=== PATIENT | female | born 1990 | race Caucasian/White ===

== ENCOUNTER 2018-01-05 07:41 | Emergency (ER) | payer BC ==
[2018-01-05 08:18] LABS: ABSOLUTE BASOPHILS # (AUTO) 0.1 10^3/uL (0.0-0.2); ABSOLUTE EOSINOPHILS # (AUTO) 0.1 10^3/uL (0.0-0.6); ABSOLUTE LYMPHOCYTES (AUTO) 1.3 10^3/uL (0.5-4.7); ABSOLUTE MONOCYTES (AUTO) 0.5 10^3/uL (0.1-1.4); ABSOLUTE NEUT (AUTO) 7.6 10^3/uL (1.7-8.2); BASOPHILS % (AUTO) 0.6 % (0-2); EOSINOPHILS % (AUTO) 1.4 % (0-6); HEMATOCRIT 42.7 % (36.0-47.0); HEMOGLOBIN 14.6 g/dL (12.0-15.5); LYMPHOCYTES % (AUTO) 13.1 % (13-45); MEAN CORPUSCULAR HEMOGLOBIN 32.3 pg (27.0-33.4); MEAN CORPUSCULAR HGB CONC 34.1 g/dL (32.0-36.0); MEAN CORPUSCULAR VOLUME 95 fl (80-97); MONOCYTES % (AUTO) 5.2 % (3-13); PLATELET COUNT 247 10^3/uL (150-450); RED CELL DISTRIBUTION WIDTH 12.6 % (11.5-14.0); SEGMENTED NEUTROPHILS % (AUTO) 79.7 % (42-78); TOTAL CELLS COUNTED % (AUTO) 100 %; WHITE BLOOD COUNT 9.6 10^3/uL (4.0-10.5)
[2018-01-05] MEDS ORDERED: ONDANSETRON HCL INJ/PF 4 MG/2 ML SDV IV ONE (08:24)
[2018-01-05] MEDS ORDERED: NORMAL SALINE 1000 ML 1,000 ML IV ONE (08:24)
[2018-01-05] MEDS ORDERED: KETOROLAC TROMETHAMINE INJ/PF 30 MG/1 ML SDV IV ONE (08:24)
[2018-01-05 08:25] LABS: ALANINE AMINOTRANSFERASE 32 U/L (9-52); ALBUMIN 4.6 g/dL (3.5-5.0); ALKALINE PHOSPHATASE 50 U/L (38-126); ANION GAP 12 (5-19); ASPARTATE AMINO TRANSFERASE 25 U/L (14-36); BILIRUBIN,DIRECT 0.3 mg/dL (0.0-0.4); BILIRUBIN,TOTAL 0.6 mg/dL (0.2-1.3); BLOOD UREA NITROGEN 7 mg/dL (7-20); CALCIUM 9.8 mg/dL (8.4-10.2); CARBON DIOXIDE 24 mmol/L (22-30); CHLORIDE 109 mmol/L (98-107); GLUCOSE 113 mg/dL (75-110); LIPASE 26.1 U/L (23-300); POTASSIUM 4.4 mmol/L (3.6-5.0); SODIUM 144.5 mmol/L (137-145); TOTAL PROTEIN 7.4 g/dL (6.3-8.2)
--- NOTE | 2018-01-05 08:27 | ER Document Report ---
ED GI/ - General Chief Complaint: Possible Kidney Stone Stated Complaint: FLANK PAIN Time Seen by Provider: 01/05/18 07:56 Mode of Arrival: Ambulatory Information source: Patient TRAVEL OUTSIDE OF THE [place] IN LAST 30 DAYS: No - HPI Patient complains to provider of: Abdominal pain Notes: 01/05/18 08:26 Patient is here with complaints of left-sided abdominal pain. She states that on Thursday she had left flank pain and the pain is since moved down to her left abdomen. She had nausea vomiting this morning. She denies any diarrhea. No blood in her stool. She has a history of kidney stones, and states that this feels similar to kidney stone she has had in the past. She denies any fever. She denies any dysuria or hematuria. No vaginal bleeding or vaginal discharge. No prior abdominal surgeries. No chest pain or shortness of breath. No numbness, tingling, weakness. No rash. No injury. She denies any other complaints at this time. Nothing makes her pain better or worse. - Related Data Allergies/Adverse Reactions: No Known Allergies Allergy (Verified 01/05/18 07:43) Past Medical History - Social History Smoking Status: Current Every Day Smoker Chew tobacco use (# tins/day): No Frequency of alcohol use: Rare Drug Abuse: Marijuana Family History: Other - Kidney Stones Patient has suicidal ideation: No Patient has homicidal ideation: No Renal/ Medical History: Reports: Hx Kidney Stones. Denies: Hx Peritoneal Dialysis - Immunizations Hx Diphtheria, Pertussis, Tetanus Vaccination: No - unknown Review of Systems - Review of Systems -: Yes All other systems reviewed and negative Physical Exam - Vital signs Vitals: Temp Pulse Resp BP Pulse Ox 98.1 F 106 H 20 124/71 100 01/05/18 07:52 01/05/18 07:52 01/05/18 07:52 01/05/18 07:52 01/05/18 07:52 - Notes Notes: GENERAL: alert, cooperative, nontoxic, no distress. HEAD: normocephalic, atraumatic EYES: conjunctiva pink without discharge, no external redness or swelling. EARS: no external swelling, no external redness NOSE: atraumatic, no external swelling MOUTH/THROAT: mucous membranes moist and pink, posterior pharynx without erythema, swelling, exudate. No trismus or drooling. NECK: soft, supple, full range of motion, no meningismus. CHEST: no distress, lungs clear and equal throughout. No wheezing, rales, rhonchi. CARDIAC: regular rate and rhythm, no murmur, normal capillary refill, normal pulses. No peripheral edema noted. ABDOMEN: Soft, tenderness to palpation of the left mid abdomen. No rebound tenderness or guarding. No mass. BACK: full range of motion, no CVA tenderness. EXTREMITIES: full range of motion of all extremities. No redness, no swelling. NEURO: alert and oriented x 3, no focal deficits, full range of motion of all extremities. PYSCH: appropriate mood, affect. Patient is cooperative. SKIN: pink, warm, dry, no rash. Course - Re-evaluation Re-evalutation: 01/05/18 11:59 Patient is nontoxic appearing with stable vitals. The patient arrives with complaints of left lower abdominal pain. She is concerned that she may have a kidney stone. On exam she has some mild left lower abdominal tenderness. No mass. No rebound tenderness. She denies any vaginal bleeding or vaginal discharge. Lab work shows that the patient is currently . Her hCG is just above 2000. This is her first . Ultrasound of the pelvis shows an intrauterine measuring 5 weeks 3 days with a left ovarian cyst. Left renal ultrasound shows no acute findings. Urinalysis shows no blood or signs of infection. Remainder of her lab work is unremarkable. This point the patient appears to have an intrauterine in her left lower quadrant pain is likely secondary to the left ovarian cyst. She will be discharged home on vitamins. She is currently established with [facility] and will was instructed to make a follow-up appointment with them at the next available appointment. She was instructed to stop smoking, to stop smoking marijuana, to avoid alcohol. She is instructed to take Tylenol as needed for her pain. Follow-up sooner if she develops any worsening pain, fever , persistent vomiting, severe vaginal bleeding, or for any further concerns. The patient is noted to have elevated blood pressure during today's emergency department visit. The patient was informed of this finding. The patient was instructed that this may be related to pre-hypertension and requires further evaluation with a primary care provider. The patient has no hypertensive symptoms at this time. The patient's emergency department workup and current diagnosis were explained to the patient and or family. Follow-up instructions were provided. Medications if prescribed were discussed. Instructions for when to return to the emergency department including specific worrisome symptoms were discussed with the patient and/or family. - Vital Signs Vital signs: Temp Pulse Resp BP Pulse Ox 98.1 F 106 H 20 124/71 100 01/05/18 07:52 01/05/18 07:52 01/05/18 07:52 01/05/18 07:52 01/05/18 07:52 - Laboratory Result Diagrams: 01/05/18 08:03 01/05/18 08:03 Laboratory results interpreted by me: 01/05/18 01/05/18 01/05/18 08:03 08:03 08:03 Seg Neutrophils % 79.7 H Chloride 109 H Creatinine 0.51 L Glucose 113 H Serum HCG, Qual POSITIVE H Beta HCG, Quant Urine HCG, Qual 01/05/18 01/05/18 08:03 09:10 Seg Neutrophils % Chloride Creatinine Glucose Serum HCG, Qual Beta HCG, Quant 2717.10 H Urine HCG, Qual POSITIVE H - Diagnostic Test Radiology reviewed: Image reviewed, Reports reviewed - Pelvic ultrasound shows intrauterine measuring 5 weeks 3 days, renal ultrasound shows no acute abnormalities, pelvic ultrasound also shows left ovarian cyst. Discharge - Discharge Clinical Impression: Left ovarian cyst Qualifiers: Weeks of gestation: less than 8 weeks Qualified Code(s): Z3A.01 - Less than 8 weeks gestation of Condition: Stable Disposition: HOME, SELF-CARE Instructions: ([facility]), Ovarian Cyst ([facility]) Additional Instructions: Take medications as prescribed. Take Tylenol as needed for pain. Stop smoking cigarettes as well as marijuana. Follow-up with [facility] at the next available appointment. Follow-up sooner for worsening pain, high fever, persistent vomiting, or for any further concerns. Your blood pressure was elevated during today's visit. Have this rechecked with your doctor. Prescriptions: Pnv No.95/Ferrous Fum/Folic AC [ Vitamin Tablet] 1 each PO DAILY #30 tablet Forms: Elevated Blood Pressure, Smoking Cessation Education Referrals: ALISSA ZIEGLER MD [ACTIVE STAFF] - Follow up as needed
[2018-01-05] MEDS ORDERED: ACETAMINOPHEN 325 MG TABLET PO ONE (09:37)
[2018-01-05 09:39] LABS: APPEARANCE,URINE CLEAR; BILIRUBIN,URINE NEGATIVE (NEGATIVE); COLOR,URINE YELLOW; GLUCOSE, URINE NEGATIVE (NEGATIVE); KETONES,URINE NEGATIVE (NEGATIVE); LEUKOCYTE ESTERASE,URINE NEGATIVE (NEGATIVE); NITRITE,URINE NEGATIVE (NEGATIVE); PROTEIN,URINE NEGATIVE (NEGATIVE); URINE SPECIFIC GRAVITY 1.011; UROBILINOGEN,URINE NEGATIVE mg/dL (<2.0)
--- NOTE | 2018-01-05 11:11 | RADIOLOGY REPORT (SQ) ---
EXAM DESCRIPTION: U/S OB TRANSVAG W/DOPPLER COMPLETED DATE/TIME: 01/05/2018 10:55 am REASON FOR STUDY: preg, left abdo pain COMPARISON: None. TECHNIQUE: Endovaginal static and realtime grayscale images acquired of the pelvis. Additional selec boubacar spectral and color Doppler images recorded. All images stored on PACs. [id number] LIMITATIONS: None. FINDINGS: There is an intrauterine gestational sac with double decidual reaction. Tiny yolk sac. B y mean sac diameter, estimated age is 5 weeks 2 days, estimated due date 09/05/2018. Embryo not yet seen. SUBCHORIONIC BLEED: No SIZE OF BLEED: Not applicable. UTERUS: No masses. No anomalies. Uterus is 7.1 x 6.4 x 4.1 cm in size. CERVICAL LENGTH: 2.7 cm Closed. RIGHT ADNEXA: Normal ovary with normal vascular flow. Right ovary is 3.7 x 1.6 x 1.5 cm in size No adnexal free fluid. No adnexal masses. LEFT ADNEXA: Normal ovary with normal vascular flow. Left ovary is 3.9 x 2.3 x 1.9 cm in size with a 1.5 cm corpus luteal cyst. No adnexal free fluid. No adnexal masses. FREE FLUID: Trace cul-de-sac fluid OTHER: No other significant finding. IMPRESSION: Intrauterine gestational sac measuring 5 weeks 2 days Left ovary hemorrhagic corpus luteal cyst 1.5 cm in size Trimester of : First - 0 to 13 weeks. TECHNICAL DOCUMENTATION: JOB ID: [id number] [employer]- All Rights Reserved Reading location - IP/workstation name: [email or web address]
--- NOTE | 2018-01-05 11:11 | RADIOLOGY REPORT (SQ) ---
EXAM DESCRIPTION: U/S RETROPERITON (RENAL/AORTA) COMPLETED DATE/TIME: 01/05/2018 10:55 am REASON FOR STUDY: left flank abdo pain, hx of kidney stones COMPARISON: None. TECHNIQUE: Dynamic and static grayscale images acquired of the kidneys and bladder and recorded on P ACS. Additional selected color Doppler and spectral images recorded. LIMITATIONS: None. FINDINGS: RIGHT KIDNEY: Normal size, 11.2 cm in length. Normal echogenicity. No solid or suspicious masses. No hydronephrosis. No calcifications. LEFT KIDNEY: Normal size, 12.7 cm in length. Normal echogenicity. No solid or suspicious masses. No hydronephrosis. No calcifications. BLADDER: No masses. OTHER FINDINGS: No other significant finding. IMPRESSION: NORMAL RENAL AND BLADDER ULTRASOUND. TECHNICAL DOCUMENTATION: JOB ID: [id number] [employer]- All Rights Reserved Reading location - IP/workstation name: [email or web address]
[2018-01-05 12:28] VITALS: BP 122/65
== END 2018-01-05 12:27 | disposition home or self-care (01) ==
LOC: ER 07:41
DX: O34.81 Maternal care for other abnormalities of pelvic organs, first trimester (principal); N83.202 Unspecified ovarian cyst, left side; R10.32 Left lower quadrant pain; O99.331 Smoking (tobacco) complicating pregnancy, first trimester; Z3A.01 Less than 8 weeks gestation of pregnancy; Z87.442 Personal history of urinary calculi
CPT/HCPCS: 99284; 96361; 96374; 36415; 84702; 83690; 84703; 85025; 81025; 80053; 81001; 76817; 76770; 93976; J2405; J7030

== ENCOUNTER 2018-04-19 08:00 | Outpatient (CLI) | payer BC ==
[2018-04-19 08:35] LABS: AMORPHOUS SEDIMENT,URINE TRACE /HPF; APPEARANCE,URINE CLOUDY; BILIRUBIN,URINE NEGATIVE (NEGATIVE); GLUCOSE, URINE NEGATIVE (NEGATIVE); KETONES,URINE NEGATIVE (NEGATIVE); LEUKOCYTE ESTERASE,URINE NEGATIVE (NEGATIVE); NITRITE,URINE NEGATIVE (NEGATIVE); PROTEIN,URINE NEGATIVE (NEGATIVE); URINE SPECIFIC GRAVITY 1.016
[2018-04-19 08:40] LABS: COLOR,URINE YELLOW
[2018-04-19 08:51] LABS: URINE AMPHETAMINES SCREEN NEGATIVE; URINE BARBITURATES SCREEN NEGATIVE; URINE BENZODIAZEPINES SCREEN NEGATIVE; URINE COCAINE SCREEN NEGATIVE; URINE METHADONE SCREEN NEGATIVE; URINE PHENCYCLIDINE SCREEN NEGATIVE
[2018-04-19 08:58] LABS: URINE MARIJUANA (THC) SCREEN UNCONFIRMED POSITIVE
== END 2018-04-19 08:45 | disposition home or self-care (01) ==
LOC: LC 08:00
PROVIDERS: ATTEND Obstetrics & Gynecology Gynecology
PROC: 4A1HXCZ Monitoring of Products of Conception, Cardiac Rate, External Approach (ICD-10-PCS; principal; 2018-04-19)
DX: O26.892 Other specified pregnancy related conditions, second trimester (principal); R10.32 Left lower quadrant pain; Z3A.20 20 weeks gestation of pregnancy; Z87.442 Personal history of urinary calculi
CPT/HCPCS: 80307; 81001

== ENCOUNTER 2018-04-19 08:53 | Emergency (ER) | payer BC ==
[2018-04-19 09:33] LABS: ABSOLUTE BASOPHILS # (AUTO) 0.1 10^3/uL (0.0-0.2); ABSOLUTE EOSINOPHILS # (AUTO) 0.1 10^3/uL (0.0-0.6); ABSOLUTE LYMPHOCYTES (AUTO) 1.5 10^3/uL (0.5-4.7); ABSOLUTE MONOCYTES (AUTO) 0.6 10^3/uL (0.1-1.4); ABSOLUTE NEUT (AUTO) 7.8 10^3/uL (1.7-8.2); BASOPHILS % (AUTO) 0.5 % (0-2); EOSINOPHILS % (AUTO) 0.8 % (0-6); HEMATOCRIT 34.7 % (36.0-47.0); HEMOGLOBIN 12.1 g/dL (12.0-15.5); LYMPHOCYTES % (AUTO) 14.6 % (13-45); MEAN CORPUSCULAR HEMOGLOBIN 33.1 pg (27.0-33.4); MEAN CORPUSCULAR HGB CONC 34.7 g/dL (32.0-36.0); MEAN CORPUSCULAR VOLUME 95 fl (80-97); MONOCYTES % (AUTO) 5.7 % (3-13); PLATELET COUNT 213 10^3/uL (150-450); RED BLOOD COUNT 3.65 10^6/uL (3.72-5.28); RED CELL DISTRIBUTION WIDTH 12.1 % (11.5-14.0); SEGMENTED NEUTROPHILS % (AUTO) 78.4 % (42-78); TOTAL CELLS COUNTED % (AUTO) 100 %
[2018-04-19 09:55] LABS: ALANINE AMINOTRANSFERASE 20 U/L (9-52); ALBUMIN 3.6 g/dL (3.5-5.0); ALKALINE PHOSPHATASE 35 U/L (38-126); ANION GAP 11 (5-19); ASPARTATE AMINO TRANSFERASE 15 U/L (14-36); BILIRUBIN,DIRECT 0.1 mg/dL (0.0-0.4); BILIRUBIN,TOTAL 0.3 mg/dL (0.2-1.3); BLOOD UREA NITROGEN 6 mg/dL (7-20); CALCIUM 9.4 mg/dL (8.4-10.2); CARBON DIOXIDE 20 mmol/L (22-30); CHLORIDE 108 mmol/L (98-107); GLUCOSE 86 mg/dL (75-110); LIPASE 29.5 U/L (23-300); POTASSIUM 4.1 mmol/L (3.6-5.0); SODIUM 139.4 mmol/L (137-145); TOTAL PROTEIN 6.7 g/dL (6.3-8.2)
[2018-04-19] MEDS ORDERED: MORPHINE SULFATE 10 MG/ML INJ IV ONE (09:56)
[2018-04-19] MEDS ORDERED: PROCHLORPERAZINE EDISYLATE INJ 10 MG/2 ML VIAL IV ONE (09:56)
[2018-04-19] MEDS ORDERED: NORMAL SALINE 1000 ML 1,000 ML IV ONE (09:57)
--- NOTE | 2018-04-19 10:03 | ER Document Report ---
ED Medical Screen (RME) - General Chief Complaint: Flank Pain Stated Complaint: FLANK PAIN Time Seen by Provider: 04/19/18 09:52 Notes: 27 years old female who is 20 week , with history of renal stone multiple of them according to her, presents today with a sharp left flank pain early this morning around 6:00 radiating towards the groin. The pain scale now has subsided to 5/10. Associated with nausea no vomiting. Denies any dysuria or hematuria. Denies any fever chills or other constitutional symptoms. This is her first . TRAVEL OUTSIDE OF THE [place] IN LAST 30 DAYS: No - Related Data Allergies/Adverse Reactions: No Known Allergies Allergy (Verified 01/05/18 07:43) Past Medical History - Social History Chew tobacco use (# tins/day): No Frequency of alcohol use: None Drug Abuse: Marijuana Renal/ Medical History: Reports: Hx Kidney Stones. Denies: Hx Peritoneal Dialysis - Immunizations Hx Diphtheria, Pertussis, Tetanus Vaccination: No - unknown Physical Exam - Vital signs Vitals: Temp Pulse Resp BP Pulse Ox 98.4 F 92 16 121/70 99 04/19/18 09:01 04/19/18 09:01 04/19/18 09:01 04/19/18 09:01 04/19/18 09:01 Course - Vital Signs Vital signs: Temp Pulse Resp BP Pulse Ox 98.4 F 92 16 121/70 99 04/19/18 09:01 04/19/18 09:01 04/19/18 09:01 04/19/18 09:01 04/19/18 09:01 - Laboratory Result Diagrams: 04/19/18 09:14 04/19/18 09:14 Laboratory results interpreted by me: 04/19/18 04/19/18 09:14 09:14 RBC 3.65 L Hct 34.7 L Seg Neutrophils % 78.4 H Chloride 108 H Carbon Dioxide 20 L BUN 6 L Creatinine 0.37 L Alkaline Phosphatase 35 L Doctor's Discharge - Discharge Referrals: MOE BECKHAM MD [Primary Care Provider] - Follow up as needed
[2018-04-19 10:07] LABS: APPEARANCE,URINE CLEAR; BILIRUBIN,URINE NEGATIVE (NEGATIVE); COLOR,URINE YELLOW; GLUCOSE, URINE NEGATIVE (NEGATIVE); KETONES,URINE NEGATIVE (NEGATIVE); LEUKOCYTE ESTERASE,URINE NEGATIVE (NEGATIVE); NITRITE,URINE NEGATIVE (NEGATIVE); PROTEIN,URINE NEGATIVE (NEGATIVE); URINE SPECIFIC GRAVITY 1.008; UROBILINOGEN,URINE NEGATIVE mg/dL (<2.0)
--- NOTE | 2018-04-19 12:01 | RADIOLOGY REPORT (SQ) ---
EXAM DESCRIPTION: U/S RETROPERITON (RENAL/AORTA) COMPLETED DATE/TIME: 04/19/2018 11:46 am REASON FOR STUDY: Left ureteric stone COMPARISON: 01/05/2018 TECHNIQUE: Dynamic and static grayscale images acquired of the kidneys and bladder and recorded on P ACS. Additional selected color Doppler and spectral images recorded. LIMITATIONS: None. FINDINGS: RIGHT KIDNEY: The right kidney measures 13.0 cm, normal size. Normal echogenicity. No belem id or suspicious masses. No hydronephrosis. No calcifications. LEFT KIDNEY: The left kidney measures 11.7 cm, normal size. Normal echogenicity. No solid or suspici ous masses. No hydronephrosis. No calcifications. BLADDER: No masses. Bilateral ureteral jets are not visualized. OTHER FINDINGS: The patient is . IMPRESSION: 1. No significant interval changes since the prior examination dated 01/05/2018. TECHNICAL DOCUMENTATION: JOB ID: [id number] [employer]- All Rights Reserved Reading location - IP/workstation name: [email or web address]
--- NOTE | 2018-04-19 12:34 | ER Document Report ---
ED GI/ - General Chief Complaint: Flank Pain Stated Complaint: FLANK PAIN Time Seen by Provider: 04/19/18 09:52 Notes: Chief complaint: Left flank pain History of complain:( obtained from----patient)27 years old female who is 20 week , with history of renal stone multiple of them according to her, presents today with a sharp left flank pain early this morning around 6:00 radiating towards the groin. The pain scale now has subsided to 5/10. Associated with nausea no vomiting. Denies any dysuria or hematuria. Denies any fever chills or other constitutional symptoms. This is her first . Left flank pain Onset: Sudden Duration: As above Severity: Moderate Quality: Sharp Context: Kidney stones Exacerbating factor and relieving factors: As above REVIEW OF SYSTEMS: CONSTITUTIONAL : Denies fever, chills, or sweats. Denies recent illness. EENT: Denies eye, ear, throat, or mouth pain or symptoms. Denies nasal or sinus congestion or discharge. Denies throat, tongue, or mouth swelling or difficulty swallowing. CARDIOVASCULAR: Denies chest pain. Denies palpitations or racing or irregular heart beat. Denies ankle edema. RESPIRATORY: Denies cough, cold, or chest congestion. Denies shortness of breath, difficulty breathing, or wheezing. GASTROINTESTINAL: Denies distention. Denies nausea, vomiting, or diarrhea. Denies blood in vomitus, stools, or per rectum. Denies black, tarry stools. Denies constipation. GENITOURINARY: Denies difficulty urinating, painful urination, burning, frequency, blood in urine, or discharge. FEMALE GENITOURINARY: Denies vaginal bleeding, heavy or abnormal periods, irregular periods. Denies vaginal discharge or odor. MUSCULOSKELETAL: Denies back or neck pain or stiffness. Denies joint pain or swelling. SKIN: Denies rash, lesions or sores. HEMATOLOGIC : Denies easy bruising or bleeding. LYMPHATIC: Denies swollen, enlarged glands. NEUROLOGICAL: Denies confusion or altered mental status. Denies passing out or loss of consciousness. Denies dizziness or lightheadedness. Denies headache. Denies weakness or paralysis or loss of use of either side. Denies problems with gait or speech. Denies sensory loss, numbness, or tingling. Denies seizures. PSYCHIATRIC: Denies anxiety or stress. Denies depression, suicidal ideation, or homicidal ideation. ALL OTHER SYSTEMS REVIEWED AND NEGATIVE. PHYSICAL EXAMINATION: GENERAL: Well-appearing, well-nourished and in mild acute distress. HEAD: Atraumatic, normocephalic. EYES: Pupils equal round and reactive to light, extraocular movements intact, conjunctiva are normal. ENT: Nares patent, oropharynx clear without exudates. Moist mucous membranes. NECK: Normal range of motion, supple without lymphadenopathy LUNGS: Breath sounds clear to auscultation bilaterally and equal. No wheezes rales or rhonchi. HEART: Regular rate and rhythm without murmurs ABDOMEN: Soft, nontender, nondistended abdomen. No guarding, no rebound. No masses appreciated. Examination of genitals-deferred Musculoskeletal: Normal range of motion, no pitting or edema. No cyanosis. NEUROLOGICAL: Cranial nerves grossly intact. Normal speech, normal gait. Normal sensory, motor exams PSYCH: Normal mood, normal affect. SKIN: Warm, Dry, normal turgor, no rashes or lesions noted. Dictation was performed using [employer] voice recognition software TRAVEL OUTSIDE OF THE [place] IN LAST 30 DAYS: No - HPI Notes: 04/19/18 12:34 Dictated - Related Data Allergies/Adverse Reactions: No Known Allergies Allergy (Verified 01/05/18 07:43) Past Medical History - Social History Smoking Status: Current Some Day Smoker Chew tobacco use (# tins/day): No Frequency of alcohol use: None Drug Abuse: None, Marijuana Lives with: Family Family History: Reviewed & Not Pertinent, Other - Kidney Stones Patient has suicidal ideation: No Patient has homicidal ideation: No Renal/ Medical History: Reports: Hx Kidney Stones. Denies: Hx Peritoneal Dialysis - Immunizations Hx Diphtheria, Pertussis, Tetanus Vaccination: No - unknown Review of Systems - Review of Systems Notes: Dictated Physical Exam - Vital signs Vitals: Temp Pulse Resp BP Pulse Ox 98.4 F 92 16 121/70 99 04/19/18 09:01 04/19/18 09:01 04/19/18 09:01 04/19/18 09:01 04/19/18 09:01 - Notes Notes: Dictated Course - Re-evaluation Re-evalutation: 04/19/18 12:35 Given pain medication and IV fluid. - Vital Signs Vital signs: Temp Pulse Resp BP Pulse Ox 98.4 F 92 16 121/70 99 04/19/18 09:01 04/19/18 09:01 04/19/18 09:01 04/19/18 09:01 04/19/18 09:01 - Laboratory Result Diagrams: 04/19/18 09:14 04/19/18 09:14 Laboratory results interpreted by me: 04/19/18 04/19/18 09:14 09:14 RBC 3.65 L Hct 34.7 L Seg Neutrophils % 78.4 H Chloride 108 H Carbon Dioxide 20 L BUN 6 L Creatinine 0.37 L Alkaline Phosphatase 35 L - Diagnostic Test Radiology reviewed: Reports reviewed - Ultrasound of the left kidney reported as no hydronephrosis or no identifiable stone. Discharge - Discharge Clinical Impression: Flank pain Condition: Fair Disposition: HOME, SELF-CARE Instructions: Abdominal Pain ([facility]) Referrals: MOE BECKHAM MD [Primary Care Provider] - Follow up as needed
[2018-04-19 12:56] VITALS: BP 110/73
== END 2018-04-19 12:56 | disposition home or self-care (01) ==
LOC: ER 08:53
DX: O26.92 Pregnancy related conditions, unspecified, second trimester (principal); R10.9 Unspecified abdominal pain; Z3A.20 20 weeks gestation of pregnancy; Z87.442 Personal history of urinary calculi
CPT/HCPCS: 99284; 96374; 96375; 36415; 83690; 85025; 80053; 81001; 76770; J2270; J0780; J7030

== ENCOUNTER 2018-09-03 00:11 | Inpatient (IN) | payer BC ==
[2018-09-03 01:02] LABS: APPEARANCE,URINE SLIGHTLY-CLOUDY; BILIRUBIN,URINE NEGATIVE (NEGATIVE); COLOR,URINE YELLOW; GLUCOSE, URINE NEGATIVE (NEGATIVE); KETONES,URINE NEGATIVE (NEGATIVE); LEUKOCYTE ESTERASE,URINE NEGATIVE (NEGATIVE); NITRITE,URINE NEGATIVE (NEGATIVE); PROTEIN,URINE NEGATIVE (NEGATIVE); URINE SPECIFIC GRAVITY 1.013; UROBILINOGEN,URINE NEGATIVE mg/dL (<2.0)
[2018-09-03 01:16] LABS: URINE AMPHETAMINES SCREEN NEGATIVE; URINE BARBITURATES SCREEN NEGATIVE; URINE BENZODIAZEPINES SCREEN NEGATIVE; URINE COCAINE SCREEN NEGATIVE; URINE MARIJUANA (THC) SCREEN NEGATIVE; URINE METHADONE SCREEN NEGATIVE; URINE PHENCYCLIDINE SCREEN NEGATIVE
[2018-09-03] MEDS ORDERED: OXYTOCIN 10 UNIT/ML VIAL ONE (01:32)
[2018-09-03] MEDS ORDERED: LIDOCAINE 1% INJ-PF (10 MG/ML) 30 ML SDV ONE (01:33)
[2018-09-03] MEDS ORDERED: OXYTOCIN/NORMAL SALINE 20 UNIT/1,000 ML RTUINJ ONE (01:33)
[2018-09-03] MEDS ORDERED: MISOPROSTOL 0.2 MG TABLET ONE (01:33)
[2018-09-03] MEDS ORDERED: RINGERS SOLUTION,LACTATED 1,000 ML IV ONE (01:43)
[2018-09-03] MEDS ORDERED: RINGERS SOLUTION,LACTATED 1,000 ML IV PRN (01:43)
--- NOTE | 2018-09-03 02:06 | Non Stress Test Report ---
Non Stress Test Datetime Report Generated by CPN: 09/03/2018 02:06 DEMOGRAPHIC EGA NST: 39.4 INDICATION Indication for Study: Other Indication for Study (NST) Other: labor MONITORING Monitor Explained: Monitor Explained; Test Explained; Patient Verbalized Understanding Time on Monitor: 09/03/2018 00:36 Time off Monitor: 09/03/2018 01:02 NST Duration: 26 NST INTERVENTIONS NST Interventions: None Physician Notified NST: Younger BABY A: [id number] BABY A Movement : Present Contraction Frequency : 1.5-3 FHR Baseline : 135 Accelerations : 15X15 Decelerations : None Variability : Moderate 6-25bpm NST Review: Meets Criteria for Reactive NST NST Review and Verified By : RONALD Sol NST Results: Reactive NST REPORT Report Trigger: Send Report
[2018-09-03 02:17] LABS: ABSOLUTE BASOPHILS # (AUTO) 0.1 10^3/uL (0.0-0.2); ABSOLUTE EOSINOPHILS # (AUTO) 0.1 10^3/uL (0.0-0.6); ABSOLUTE LYMPHOCYTES (AUTO) 1.7 10^3/uL (0.5-4.7); ABSOLUTE MONOCYTES (AUTO) 0.9 10^3/uL (0.1-1.4); ABSOLUTE NEUT (AUTO) 10.2 10^3/uL (1.7-8.2); BASOPHILS % (AUTO) 0.9 % (0-2); EOSINOPHILS % (AUTO) 0.4 % (0-6); HEMATOCRIT 35.3 % (36.0-47.0); LYMPHOCYTES % (AUTO) 12.7 % (13-45); MEAN CORPUSCULAR HEMOGLOBIN 32.3 pg (27.0-33.4); MEAN CORPUSCULAR VOLUME 95 fl (80-97); MONOCYTES % (AUTO) 7.3 % (3-13); PLATELET COUNT 193 10^3/uL (150-450); RED BLOOD COUNT 3.71 10^6/uL (3.72-5.28); RED CELL DISTRIBUTION WIDTH 13.7 % (11.5-14.0); SEGMENTED NEUTROPHILS % (AUTO) 78.7 % (42-78); TOTAL CELLS COUNTED % (AUTO) 100 %
[2018-09-03] MEDS ORDERED: NALBUPHINE HCL INJ 10 MG/1 ML AMPULE ONE (02:22)
--- NOTE | 2018-09-03 02:26 | Admission Physical ---
Datetime Report Generated by CPN: 09/03/2018 02:26 CURRENT ADMISSION Chief Complaint: Uterine Contractions Indication for Induction: Not Applicable Admit Impression : Term, Intrauterine ; Active Labor; Intact Membranes Admit Plan: Admit to Unit; Initiate Labor Protocol ALLERGIES Medication Allergies: No Medication Allergies: No Known Allergies (09/03/2018) Latex: No Latex Allergies OBSTETRICAL HISTORY EDC: 09/06/2018 00:00 : 1 Para: 0 Term: 0 : 0 SAB: 0 IAB: 0 Ectopic: 0 Livin Cesareans: 0 VBACs: 0 Multiple Births: 0 Gestational Diabetes: No Rh Sensitization: No Incompetent Cervix: No SUKI: No Infertility: No ART Treatment: No Uterine Anomaly: No IUGR: No Hx Previous C/S: No Macrosomia: No Hx Loss/Stillborn: No PIH: No Hx : No Placenta Previa/Abruption: No Depression/PP Depression: No PTL/PROM: No Post Hemorrhage: No Current Procedures: Ultrasound SEE RECORDS Alcohol: No Marijuana : No Cocaine: No Other Illicit Drugs: No Cigarettes: Current Some Day Smoker. [id number] MEDICAL HISTORY Diabetes: No Blood Transfusion: No Pulmonary Disease (Asthma, TB): No Breast Disease: No Hypertension: No Magnetic Healer Surgery: No Heart Disease: No Hosp/Surgery: Yes Autoimmune Disorder: No Anesthetic Complications: No Kidney Disease: No Abnormal Pap Smear: No Neuro/Epilepsy: No Psychiatric Disorders: No Other Medical Diseases: No Hepatitis/Liver Disease: No Significant Family History: No Varicosities/Phlebitis: No Trauma/Violence : No Thyroid Dysfunction: No Medical History Comments: Hx of Kidney stones, wisdom teeth extraction INFECTIOUS HISTORY Gonorrhea: No Genital Herpes: No Chlamydia: No Tuberculosis: No Syphilis: No Hepatitis: No HIV/AIDS Exposure: No Rash or Viral Illness: No HPV: No PHYSICAL EXAM General: Normal HEENT: Normal Neurologic: Normal Thyroid: Normal Heart: Normal Lungs: Normal Breast: Normal Back: Normal Abdomen: Normal Genitourinary Exam: Normal Extremities: Normal DTRs: Normal Pelvic Type: Adequate Vital Signs: Reviewed; Within Normal Limits VAGINAL EXAM Dilatation: 3 Effacement: 70 Station: -1 Contraction Comments: q 2 minutes MEMBRANES Membranes: Intact FETUS A EGA: 39.4 Monitoring: External US FHR- Baseline: 130s Variability: Moderate 6-25bpm Accelerations: 15X15 Decelerations: None Admit Comment: GBS Negative. Some high BPs on admission, more than likely secondary to pain, will check [facility] labs. PLANS FOR LABOR AND DELIVERY Labor and Delivery: None Pain Management: Epidural Feeding Preference: Breast Benefit of Breast Feed Discussed: Yes Circumcision: N/A INFORMED CONSENT Signature: with User ID: [email or web address]
[2018-09-03] MEDS ORDERED: NALBUPHINE HCL INJ 10 MG/1 ML AMPULE INJ ONE (02:27)
[2018-09-03 02:34] LABS: ALANINE AMINOTRANSFERASE 15 U/L (9-52); ALBUMIN 3.4 g/dL (3.5-5.0); ALKALINE PHOSPHATASE 127 U/L (38-126); ANION GAP 10 (5-19); ASPARTATE AMINO TRANSFERASE 16 U/L (14-36); BILIRUBIN,DIRECT 0.2 mg/dL (0.0-0.4); BILIRUBIN,TOTAL 0.4 mg/dL (0.2-1.3); BLOOD UREA NITROGEN 11 mg/dL (7-20); CALCIUM 9.1 mg/dL (8.4-10.2); CARBON DIOXIDE 18 mmol/L (22-30); CHLORIDE 109 mmol/L (98-107); GLUCOSE 98 mg/dL (75-110); POTASSIUM 3.7 mmol/L (3.6-5.0); SODIUM 136.5 mmol/L (137-145); TOTAL PROTEIN 6.1 g/dL (6.3-8.2); URIC ACID 6.8 mg/dL (2.5-6.2)
[2018-09-03] MEDS ORDERED: EPHEDRINE SULFATE INJ 50 MG/1 ML AMPULE ONE (02:42)
[2018-09-03] MEDS ORDERED: BUPIVACAINE HCL 0.25 % INJ/PF (2.5 MG/1 ML) 30 ML VIAL ONE (02:43)
[2018-09-03] MEDS ORDERED: FENTANYL/BUPIVACAINE/NS/PF 300 MCG/150 ML RTUINJ EPI ONE (02:43)
[2018-09-03 03:37] LABS: UR PRO/CREAT RATIO RESULT 0.5 mg/mg (0.0-0.2); URINE CREATININE 47.6 mg/dL (16-327); URINE PROTEIN 22.3 mg/dL (<12)
--- NOTE | 2018-09-03 06:34 | L&D Progress Notes ---
PROGRESS NOTES Datetime Report Generated by CPN: 09/03/2018 06:34 PROGRESS NOTE Impression: Normal Progression of Labor Procedures- Other: AROM Plan: Continue Present Management Vital Signs : Reviewed; Within Normal Limits Comment: Performed AROM, light meconium. Pt comfortable. Cont current care. VAGINAL EXAM Dilatation: 9 Dilatation: 3 Effacement: 100 Effacement: 70 Station: 0 Station: -1 Contractions: q 2 minutes LAST VAGINAL EXAM-NURSING Dilitation: 7.0 Dilitation: 6.0 Dilitation: 5.0 Dilitation: 3.5 Effacement: 90 Effacement: 90 Effacement: 90 Effacement: 80 Station: -1 Station: -1 Station: -1 Contractions: coupling of UC noted Contractions: coupling of UC noted Contractions: applied Contractions: abdomen soft and nontender MEMBRANES Membranes: Intact FETUS A FHR - Baseline: 130s Monitoring: External US Accelerations: 15X15 Decelerations: None FHR Category: Category I : 39.4 : 39.4 SIGNATURE SIGNATURE: [id number];[id number];[id number] SIGNATURE: [id number];[id number] SIGNATURE: [id number] Signature: with User ID: [email or web address]
[2018-09-03] MEDS ORDERED: ZOLPIDEM TARTRATE 5 MG TABLET PO PRN ×2 (11:05→18:10)
[2018-09-03] MEDS ORDERED: ACETAMINOPHEN WITH CODEINE #3 TABLET PO PRN ×2 (11:05→18:10)
[2018-09-03] MEDS ORDERED: DIBUCAINE 1% OINTMENT 28 GM TP PRN ×2 (11:05→18:10)
[2018-09-03] MEDS ORDERED: BENZOCAINE/MENTHOL AEROSOL SPRAY 56 ML TOP PRN ×2 (11:05→18:10)
[2018-09-03] MEDS ORDERED: DIPH/PERTUSS(ACELL)/TETANUS VAC/PF 0.5 ML SYR (>=10YO) IM PRN ×2 (11:05→18:10)
[2018-09-03] MEDS ORDERED: OXYTOCIN/NORMAL SALINE 20 UNIT/1,000 ML RTUINJ IV PRN (11:05)
[2018-09-03] MEDS ORDERED: MEASLES,MUMPS&RUBELLA VACC/PF 0.5 ML VIAL SUBCUT PRN ×2 (11:05→18:10)
[2018-09-03] MEDS ORDERED: IBUPROFEN 800 MG TABLET ONE (11:13)
[2018-09-03] MEDS ORDERED: BENZOCAINE/MENTHOL AEROSOL SPRAY 56 ML ONE (11:13)
--- NOTE | 2018-09-03 11:32 | Warning Signs in Babies ---
VOD Warning Signs Datetime Report Generated by [facility]: 09/03/2018 11:32 VOD#608 -Warning Signs in Babies: Viewed with Parent(s)/Family (04/19/2018 08:09:DERICK Nova)
[2018-09-03] MEDS: MISOPROSTOL 0.2 MG TABLET PR ONE ×2 (11:48→12:33)
--- NOTE | 2018-09-03 11:56 | Delivery Summary ---
Del Sum A-C Datetime Report Generated by CPN: 09/03/2018 11:56 DELIVERY PERSONNEL DELIVERY PERSONNEL: [id number] Delivery Doctor:: Desiree Mckeon CNM Nurse Ese Teacher Certified:: Desiree Mckeon CNM Labor and Delivery Nurse:: DERICK Nova Labor and Delivery Nurse:: DERICK Newman Operations Assistant/MATERIAL PROCESSOR: Tanisha Duran CNA II Operations Assistant/MATERIAL PROCESSOR: Winnie Coffman, INSPECTOR CHIEF MATERNAL INFORMATION Delivery Anesthesia: Local; Epidural Medications After Delivery: Pitocin Drip 20 Units/1000ml NSS; Other-Please Comment Meds After Delivery Comment: cytotec 200 mcg po per provider. Pitocin 20 units in 1000 ml nss Estimated Blood Loss (ml): 500 Maternal Complications: None Provider Comments: of Viable female, ELIOT position. Baby girl crying and placed on pts abdoman in stable condition. Cord clamped and cut after 1 min. cord blood obtained. Placenta S/C/I, IV Pitocin infusing, ff w/ decreased bleeding. SL Cytotec given then Rectal Cytotec given after repair was done due to increased oozing at suture site on the perineum. Mother and baby in stable condition, skin to skin. EBL > 500 ml LABOR SUMMARY EDC: 09/06/2018 00:00 No. Babies in Womb: 1 (Annotations: Data stored by N on behalf of user) Attempted: No Labor Anesthesia: Epidural LABOR INFORMATION Reason for Induction: Not Applicable Onset of Labor: 09/03/2018 23:59 Complete Dilatation: 09/03/2018 06:58 Oxytocin: N/A Group B Beta Strep: Negative Antibiotics # of Doses: 0 Steroids Given: None Reason Steroids Not Administered: Not Applicable MEMBRANES Membranes Rupture Method: Artificial Rupture of Membranes: 09/03/2018 06:25 Length of Rupture (hr): 3.83 Amniotic Fluid Color: Light Meconium Amniotic Fluid Amount: Scant Amniotic Fluid Odor: Normal STAGES OF LABOR Stage 1 hr: -17 Stage 1 min: -1 Stage 2 hr: 3 Stage 2 min: 17 Stage 3 hr: 0 Stage 3 min: 6 Total Time in Labor hr: -13 Total Time in Labor min: -38 VAGINAL DELIVERY Episiotomy: None Laceration #1: Perineal; Sulcus Laceration Extension #1: Second Degree Other Laceration: bilateral sulcus tears Laceration Repair: Yes Laceration Repair Note: Deep sulcus tear on pts Rt side, bleeding from the tear lead to the QBL being greater than 500 ml. Smaller sulcu tear on pts left side easily made hemostatic using 3.[address] needle. Sponge Count Correct: N/A Sharps Count Correct: N/A CSECTION DELIVERY Primary Indication: N/A Secondary Indication: N/A CSection Incidence: N/A Labor: N/A Elective: N/A CSection Incision: N/A BABY A INFORMATION Delivery Date/Time: 09/03/2018 10:15 Method of Delivery: Vaginal Born in Route : No : N/A Forceps: N/A Vacuum Extraction: N/A Shoulder Dystocia : No PRESENTATION/POSITION BABY A Presentation: Cephalic Cephalic Presentation: Vertex Vertex Position: Right Occipital Anterior Breech Presentation: N/A PLACENTA INFORMATION BABY A Placenta Delivery Time : 09/03/2018 10:21 Placenta Method of Delivery: Spontaneous Placenta Status: Delivered SCORES BABY A Heart Rate 1 min: >100 bpm Resp Effort 1 min: Good Cry Reflex Irritability 1 min: Cough or Sneeze or Pulls Away Muscle Tone 1 min: Active Motion Color 1 min: Body Destrehan, Extremities Blue Resuscitation Effort 1 min: Tactile Stimulation SCORE 1 MIN: 9 Heart Rate 5 min: >100 bpm Resp Effort 5 min: Good Cry Reflex Irritability 5 min: Cough or Sneeze or Pulls Away Muscle Tone 5 min: Active Motion Color 5 min: Body Destrehan, Extremities Blue Resuscitation Effort 5 min: N/A SCORE 5 MIN: 9 Resuscitation Effort 10 min: N/A INFANT INFORMATION BABY A Gestational Age at Delivery: 39.4 Gestational Status: Full Term- 39- 40.6 Weeks Infant Outcome : Liveborn Infant Condition : Stable Infant Sex: Female IDENTIFICATION BABY A Verification Date/Time: 09/03/2018 10:44 ID Band Number: [id number] Mother's Name Verified: Yes Infant RN Verifying : Danya Camp RNC Additional Verifying Personnel: Martha Duran CNA WEIGHT/LENGTH BABY A Infant Birthweight (gm): 3649 Weight (lb): 8 Infant Weight (oz): 1 Length (in): 21.00 Length (cm): 53.34 CORD INFORMATION BABY A No. Cord Vessels: 3 Nuchal Cord : N/A Cord Blood Taken: Yes-For Storage (Mom's Blood type +) Infant Suction: None ASSESSMENT BABY A Complications: Meconium Physical Findings at Delivery: Caput Succedaneum; Molding of the Head Infant Respirations: Appears Normal Skin to Skin: Yes Skin to Skin Time (min): 45 Principal Network Architect/ALS Called : No Infant Care By: Janusz Menjivar [facility] Transferred To: Remains with Mother BABY B INFORMATION : N/A
[2018-09-03] MEDS ORDERED: IBUPROFEN 800 MG TABLET PO SCH (14:00)
[2018-09-03] MEDS ORDERED: DOCUSATE SODIUM 100 MG CAPSULE PO SCH (18:00)
[2018-09-03] MEDS ORDERED: FERROUS SULFATE 325 MG TABLET PO SCH (18:00)
[2018-09-03] MEDS ORDERED: OXYTOCIN/NORMAL SALINE 1,000 ML IV PRN (18:10)
[2018-09-03] MEDS ORDERED: ACETAMINOPHEN WITH CODEINE #3 TABLET ONE (18:10)
[2018-09-03] MEDS: IBUPROFEN 800 MG TABLET PO SCH (21:17)
[2018-09-04] MEDS: IBUPROFEN 800 MG TABLET PO SCH ×3 (05:02→22:16)
[2018-09-04] MEDS: ACETAMINOPHEN WITH CODEINE #3 TABLET PO PRN ×3 (08:19→22:42)
[2018-09-04 08:38] LABS: HEMATOCRIT 26.8 % (36.0-47.0); MEAN CORPUSCULAR HEMOGLOBIN 32.6 pg (27.0-33.4); MEAN CORPUSCULAR HGB CONC 33.9 g/dL (32.0-36.0); MEAN CORPUSCULAR VOLUME 96 fl (80-97); PLATELET COUNT 150 10^3/uL (150-450); RED BLOOD COUNT 2.78 10^6/uL (3.72-5.28); RED CELL DISTRIBUTION WIDTH 13.7 % (11.5-14.0); WHITE BLOOD COUNT 11.9 10^3/uL (4.0-10.5)
[2018-09-04 08:39] LABS: HEMOGLOBIN 9.1 g/dL (12.0-15.5)
--- NOTE | 2018-09-04 09:01 | PDOC PROGRESS REPORT ---
Subjective-OB Progress Note for:: 09/04/18 Subjective: Doing well, no c/o, Physical Exam (OB) Vital Signs: Temp Pulse Resp BP Pulse Ox 98.3 F 94 15 123/79 97 09/04/18 08:07 09/04/18 08:07 09/04/18 08:07 09/04/18 08:07 09/04/18 08:07 Intake & Output 09/03/18 09/04/18 09/05/18 06:59 06:59 06:59 Intake Total 500 Balance 500 Weight 94.6 kg - PIH/Pre-Eclampsia Clonus: Negative Headache: Absent Epigastric Pain: No Visual Changes: No - Lochia Lochia Amount: Small 10-25 ml Lochia Color: Rubra/Red - Abdomen Description: Tender, Soft, Round Hernia Present: No Fundal Description: Firm, Midline Fundal Height: u/u - u/2 Objective-Diagnostic Laboratory: 09/04/18 08:25 09/03/18 02:06 09/04/18 08:25 WBC 11.9 H RBC 2.78 L Hgb 9.1 L D Hct 26.8 L MCV 96 MCH 32.6 MCHC 33.9 RDW 13.7 Plt Count 150 Assessment and Plan(PN) - Assessment and Plan (1) Delivery normal Is this a current diagnosis for this admission?: Yes (2) hemorrhage Qualifiers: hemorrhage type: unspecified Qualified Code(s): O72.1 - Other immediate hemorrhage Is this a current diagnosis for this admission?: Yes - Time Spent with Patient Time with patient: Less than 15 minutes Medications reviewed and adjusted accordingly: Yes - Disposition Anticipated Discharge: Home Within: within 24 hours
[2018-09-04] MEDS ORDERED: SENNOSIDES/DOCUSATE 8.6-50 MG 1 EACH TABLET PO SCH (10:00)
[2018-09-04] MEDS ORDERED: PRENATAL VITAMIN W DHA CAPSULE PO SCH (10:00)
[2018-09-04] MEDS: SENNOSIDES/DOCUSATE 8.6-50 MG 1 EACH TABLET PO SCH (10:18)
[2018-09-04] MEDS: FERROUS SULFATE 325 MG TABLET PO SCH ×2 (10:18→17:40)
[2018-09-04] MEDS: DOCUSATE SODIUM 100 MG CAPSULE PO SCH ×2 (10:18→17:40)
[2018-09-04] MEDS: PRENATAL VITAMIN W DHA CAPSULE PO SCH (10:18)
[2018-09-05] MEDS: IBUPROFEN 800 MG TABLET PO SCH ×2 (05:06→14:15)
[2018-09-05] MEDS: ACETAMINOPHEN WITH CODEINE #3 TABLET PO PRN ×2 (07:54→14:14)
--- NOTE | 2018-09-05 09:57 | PDOC DISCHARGE SUMMARY ---
Final Diagnosis Discharge Date: 09/05/18 - PP Day #2, doing well, no complaints, , A+, Rubella Immune - Final Diagnosis (1) Anemia, Is this a current diagnosis for this admission?: Yes (2) Delivery normal Is this a current diagnosis for this admission?: Yes (3) hemorrhage Is this a current diagnosis for this admission?: Yes Discharge Data - Discharge Medication Prescriptions: Ferrous Sulfate [Feosol 325 mg Tablet] 325 mg PO DAILY #30 tablet Ibuprofen [Motrin 800 mg Tablet] 800 mg PO Q8 #60 tablet Home Medications: Pnv No.95/Ferrous Fum/Folic AC [ Vitamin Tablet] 1 each PO DAILY #30 tablet 01/05/18 Ranitidine HCl [Zantac 150 mg Tablet] 150 mg PO DAILY 09/03/18 Ferrous Sulfate [Feosol 325 mg Tablet] 325 mg PO DAILY #30 tablet 09/05/18 Ibuprofen [Motrin 800 mg Tablet] 800 mg PO Q8 #60 tablet 09/05/18 Reason(s) for Admission: Onset of Labor Procedures: Ultrasound Intrapartum Procedure(s): Spontaneous Vaginal Delivery Complication(s): Laceration-Vaginal, Laceration-Sulcus, Hemorrhage- Uterine Atony Laceration-Degree: 2nd - Diagnosis Test Laboratory: Temp Pulse Resp BP Pulse Ox 98.6 F 99 18 123/57 L 96 09/05/18 07:56 09/05/18 07:56 09/05/18 07:56 09/05/18 07:56 09/05/18 07:56 09/03/18 09/03/18 09/04/18 00:28 02:06 08:25 RBC 3.71 L 2.78 L Hgb 12.0 9.1 L D Hct 35.3 L 26.8 L Urine Opiates Screen NEGATIVE - Discharge information/Instructions Discharge Activity: Activity As Tolerated, No Lifting Over 10 Pounds, Pelvic Rest Discharge Diet: As Tolerated, Regular Disposition: HOME, SELF-CARE Follow up with: [facility] in: 4, Weeks
[2018-09-05] MEDS: SENNOSIDES/DOCUSATE 8.6-50 MG 1 EACH TABLET PO SCH (10:56)
[2018-09-05] MEDS: FERROUS SULFATE 325 MG TABLET PO SCH (10:56)
[2018-09-05] MEDS: PRENATAL VITAMIN W DHA CAPSULE PO SCH (10:56)
[2018-09-05] MEDS: DOCUSATE SODIUM 100 MG CAPSULE PO SCH (10:56)
[2018-09-05 17:11] VITALS: BP 123/79
== END 2018-09-05 18:15 | disposition home or self-care (01) | DRG 807 ==
LOC: LC 00:11 → LR 01:51 → 2S 12:52
PROVIDERS: ADMIT Obstetrics & Gynecology; ATTEND Obstetrics & Gynecology
PROC: 10E0XZZ Delivery of Products of Conception, External Approach (ICD-10-PCS; principal; 2018-09-03)
PROC: 0KQM0ZZ Repair Perineum Muscle, Open Approach (ICD-10-PCS; 2018-09-03)
DX: O99.334 Smoking (tobacco) complicating childbirth (principal); Z37.0 Single live birth; F17.210 Nicotine dependence, cigarettes, uncomplicated; O70.1 Second degree perineal laceration during delivery; O77.0 Labor and delivery complicated by meconium in amniotic fluid; O72.1 Other immediate postpartum hemorrhage; O99.02 Anemia complicating childbirth; D64.9 Anemia, unspecified; Z3A.39 39 weeks gestation of pregnancy
CPT/HCPCS: 36415; 80053; 80307; 81005; 82570; 83615; 84112; 84156; 84550; 85025; 85027; 86592; 86850; 86900; 86901; 94760; J2300; J2590; J3010; J3490

== ENCOUNTER 2020-03-26 12:08 | Emergency (ER) | payer BC ==
[2020-03-26] MEDS ORDERED: ONDANSETRON HCL INJ/PF 4 MG/2 ML SDV IV ONE ×2 (12:52→17:00)
[2020-03-26] MEDS ORDERED: NORMAL SALINE 1000 ML 1,000 ML IV ONE (12:52)
[2020-03-26] MEDS ORDERED: FENTANYL CITRATE INJ/PF 100 MCG/2 ML AMPUL IV ONE ×2 (12:52→17:00)
--- NOTE | 2020-03-26 12:54 | ER Document Report ---
ED Medical Screen (RME) - General Chief Complaint: Abdominal Pain Stated Complaint: ABDOMINAL PAIN, URINARY ISSUES Time Seen by Provider: 03/26/20 12:47 Notes: HPI: 29-year-old female presenting to the emergency department for evaluation of right lower quadrant pain. Patient began with dysuria a week ago. Had some discomfort across the lower abdomen and pelvis throughout the week became much more prominent in the right lower quadrant today. Went to urgent care was referred into the emergency department. Has not had a definitive fever has had chills and nausea no vomiting did not eat today pain is worse with walking and movement. She states that she does have history of kidney stones also has history of frequent kidney and urinary infections PHYSICAL EXAMINATION: Patient is moderately uncomfortable. She has rebound tenderness in the right lower quadrant right pelvis region with guarding. She has mild right CVA tenderness and tenderness in the right lateral flank region on palpation. Discussed with Dr. Barrett. Patient is not large, appendicitis or pyelonephritis are in the differential, will give oral and IV contrast for CT I have greeted and performed a rapid initial assessment of this patient. A comprehensive ED assessment and evaluation of the patient, analysis of test results and completion of medical decision making process will be conducted by an additional ED providers. TRAVEL OUTSIDE OF THE [place] IN LAST 30 DAYS: No - Related Data Allergies/Adverse Reactions: No Known Allergies Allergy (Verified 09/03/18 00:55) Past Medical History - Social History Frequency of alcohol use: None Drug Abuse: Marijuana Renal/ Medical History: Reports: Hx Kidney Stones. Denies: Hx Peritoneal Dialysis - Immunizations Hx Diphtheria, Pertussis, Tetanus Vaccination: No - unknown Physical Exam - Vital signs Vitals: Temp Pulse Resp BP Pulse Ox 98.5 F 81 20 109/68 100 03/26/20 12:18 03/26/20 12:18 03/26/20 12:18 03/26/20 12:18 03/26/20 12:18 Course - Vital Signs Vital signs: Temp Pulse Resp BP Pulse Ox 98.5 F 81 20 109/68 100 03/26/20 12:18 03/26/20 12:18 03/26/20 12:18 03/26/20 12:18 03/26/20 12:18
[2020-03-26 13:21] LABS: ABSOLUTE EOSINOPHILS # (AUTO) 0.1 10^3/uL (0.0-0.6); ABSOLUTE MONOCYTES (AUTO) 0.5 10^3/uL (0.1-1.4); ABSOLUTE NEUT (AUTO) 4.9 10^3/uL (1.7-8.2); BASOPHILS % (AUTO) 0.6 % (0-2); EOSINOPHILS % (AUTO) 0.7 % (0-6); HEMATOCRIT 39.3 % (36.0-47.0); HEMOGLOBIN 13.6 g/dL (12.0-15.5); LYMPHOCYTES % (AUTO) 26.5 % (13-45); MEAN CORPUSCULAR HEMOGLOBIN 32.4 pg (27.0-33.4); MEAN CORPUSCULAR HGB CONC 34.6 g/dL (32.0-36.0); MEAN CORPUSCULAR VOLUME 94 fl (80-97); MONOCYTES % (AUTO) 6.3 % (3-13); PLATELET COUNT 199 10^3/uL (150-450); RED BLOOD COUNT 4.21 10^6/uL (3.72-5.28); SEGMENTED NEUTROPHILS % (AUTO) 65.9 % (42-78); TOTAL CELLS COUNTED % (AUTO) 100 %; WHITE BLOOD COUNT 7.5 10^3/uL (4.0-10.5)
[2020-03-26 13:46] LABS: ALBUMIN 4.8 g/dL (3.5-5.0); ALKALINE PHOSPHATASE 44 U/L (38-126); ANION GAP 9 (5-19); ASPARTATE AMINO TRANSFERASE 23 U/L (14-36); BILIRUBIN,TOTAL 0.7 mg/dL (0.2-1.3); BLOOD UREA NITROGEN 12 mg/dL (7-20); CALCIUM 9.4 mg/dL (8.4-10.2); CARBON DIOXIDE 26 mmol/L (22-30); CHLORIDE 103 mmol/L (98-107); GLUCOSE 86 mg/dL (75-110); POTASSIUM 3.7 mmol/L (3.6-5.0); TOTAL PROTEIN 7.6 g/dL (6.3-8.2)
[2020-03-26 14:25] LABS: APPEARANCE,URINE CLEAR; BILIRUBIN,URINE NEGATIVE (NEGATIVE); COLOR,URINE STRAW; GLUCOSE, URINE NEGATIVE (NEGATIVE); KETONES,URINE 20 mg/dL (NEGATIVE); LEUKOCYTE ESTERASE,URINE NEGATIVE (NEGATIVE); NITRITE,URINE NEGATIVE (NEGATIVE); PROTEIN,URINE NEGATIVE (NEGATIVE); URINE SPECIFIC GRAVITY 1.005; UROBILINOGEN,URINE NEGATIVE mg/dL (<2.0)
--- NOTE | 2020-03-26 16:02 | RADIOLOGY REPORT (SQ) ---
EXAM DESCRIPTION: CT ABD/PELVIS WITH IV ORAL IMAGES COMPLETED DATE/TIME: 03/26/2020 3:37 pm REASON FOR STUDY: RLQ pain COMPARISON: 08/14/2016 TECHNIQUE: CT scan of the abdomen and pelvis performed using helical scanning technique with dynamic intravenous contrast injection. No oral contrast. Images reviewed with lung, soft tissue, and bone windows. Reconstructed coronal and sagittal MPR images reviewed. Delayed images for evaluation of the urinary system also acquired. All images stored on PACS. All CT scanners at this facility use dose modulation, iterative reconstruction, and/or weight based d osing when appropriate to reduce radiation dose to as low as reasonably achievable (ALARA). [facility]: Dose Right [facility]: CareDose [facility]: Dose Right [facility]: Teradose 4D [facility]: Vascular Magnetics CONTRAST TYPE AND DOSE: contrast/concentration: Isovue 350.00 mmol/ml; Total Contrast Delivered: 67. 0 ml; Total Saline Delivered: 50.9 ml RENAL FUNCTION: BUN 12, creatinine 0.54 RADIATION DOSE: CT Rad equipment meets quality standard of care and radiation dose reduction techniq ues were employed. CTDIvol: 5.0 - 5.8 mGy. DLP: 556 mGy-cm.. LIMITATIONS: None. FINDINGS: LOWER CHEST: No significant findings. No nodules or infiltrates. LIVER: Hepatomegaly. The liver measures over 19 cm in cranial caudal dimensions. No focal lesions. SPLEEN: Normal size. No focal lesions. PANCREAS: No masses. No significant calcifications. No adjacent inflammation or peripancreatic fluid collections. Pancreatic duct not dilated. GALLBLADDER: No identified stones by CT criteria. No inflammatory changes to suggest cholecystitis. ADRENAL GLANDS: No significant masses or asymmetry. RIGHT KIDNEY AND URETER: No solid masses. No significant calcifications. No hydronephrosis or hyd roureter. LEFT KIDNEY AND URETER: No solid masses. No significant calcifications. No hydronephrosis or hydr oureter. AORTA AND VESSELS: No aneurysm. No dissection. Renal arteries, SMA, celiac without stenosis. RETROPERITONEUM: No retroperitoneal adenopathy, hemorrhage or masses. BOWEL AND PERITONEAL CAVITY: No masses or inflammatory changes. No free fluid or peritoneal masses. APPENDIX: Not visualized. PELVIS: Small amount of free fluid the pelvis. This could be physiologic. ABDOMINAL WALL: No masses. No hernias. BONES: No significant or acute findings. OTHER: No other significant finding. IMPRESSION: 1. Hepatomegaly. 2. Small amount of free fluid in the cul de sac most likely physiologic. No other significant findi ngs. TECHNICAL DOCUMENTATION: JOB ID: [id number] Quality ID # [id number]: Final reports with documentation of one or more dose reduction techniques (e.g., Au tomated exposure control, adjustment of the mA and/or kV according to patient size, use of iterative reconstruction technique) 2010 [employer]- All Rights Reserved Reading location - IP/workstation name: [email or web address]
--- NOTE | 2020-03-26 16:59 | ER Document Report ---
ED GI/ - General Chief Complaint: Abdominal Pain Stated Complaint: ABDOMINAL PAIN, URINARY ISSUES Time Seen by Provider: 03/26/20 12:47 Mode of Arrival: Ambulatory Information source: Patient Notes: Patient is an otherwise healthy 29-year-old female presenting to the emergency department chief complaint of right lower quadrant abdominal pain that began last night. She states that the pain is worse with movement. She has had some nausea but no vomiting. She has not had any fever or chills. She has not eaten today but states she is now hungry. She does report some dysuria that began today and also some slight pain at the end of urination that has been going on for 1 week, she states she passes kidney stones all the time so she thought that maybe she was passing small stones. TRAVEL OUTSIDE OF THE [place] IN LAST 30 DAYS: No - Related Data Allergies/Adverse Reactions: No Known Allergies Allergy (Verified 09/03/18 00:55) Past Medical History - General Information source: Patient - Social History Smoking Status: Former Smoker Frequency of alcohol use: None Drug Abuse: Marijuana Family History: Reviewed & Not Pertinent, Other - Kidney Stones Renal/ Medical History: Reports: Hx Kidney Stones. Denies: Hx Peritoneal Dialysis Past Surgical History: Reports: Other - Lithotripsy - Immunizations Immunizations up to date: Yes Hx Diphtheria, Pertussis, Tetanus Vaccination: No - unknown Review of Systems - Review of Systems Gastrointestinal: Abdominal pain - RLQ, Nausea -: Yes All other systems reviewed and negative Physical Exam - Vital signs Vitals: Temp Pulse Resp BP Pulse Ox 98.5 F 81 20 109/68 100 03/26/20 12:18 03/26/20 12:18 03/26/20 12:18 03/26/20 12:18 03/26/20 12:18 - Notes Notes: PHYSICAL EXAMINATION: GENERAL: Well-appearing, well-nourished and in no acute distress. HEAD: Atraumatic, normocephalic. EYES: Pupils equal round and reactive to light, extraocular movements intact, conjunctiva are normal. ENT: Nares patent, oropharynx clear without exudates. Moist mucous membranes. NECK: Normal range of motion, supple without lymphadenopathy LUNGS: Breath sounds clear to auscultation bilaterally and equal. No wheezes rales or rhonchi. HEART: Regular rate and rhythm without murmurs ABDOMEN: Soft, nondistended abdomen. Tenderness in the RLQ. No guarding, no rebound. No masses appreciated. Female : No CVA tenderness. Musculoskeletal: Normal range of motion, no pitting or edema. No cyanosis. NEUROLOGICAL: Cranial nerves grossly intact. Normal speech, normal gait. Normal sensory, motor exams PSYCH: Normal mood, normal affect. SKIN: Warm, Dry, normal turgor, no rashes or lesions noted. Course - Re-evaluation Re-evalutation: 03/26/20 16:58 Laboratory 03/26/20 03/26/20 03/26/20 13:04 13:04 14:00 WBC 7.5 RBC 4.21 Hgb 13.6 Hct 39.3 MCV 94 MCH 32.4 MCHC 34.6 RDW 12.0 Plt Count 199 Lymph % (Auto) 26.5 [place] % (Auto) 6.3 Eos % (Auto) 0.7 Baso % (Auto) 0.6 Absolute Neuts (auto) 4.9 Absolute Lymphs (auto) 2.0 Absolute Monos (auto) 0.5 Absolute Eos (auto) 0.1 Absolute Basos (auto) 0.0 Seg Neutrophils % 65.9 Sodium 137.6 Potassium 3.7 Chloride 103 Carbon Dioxide 26 Anion Gap 9 BUN 12 Creatinine 0.54 Est GFR ( Amer) > 60 Est GFR (MDRD) Non-Af > 60 Glucose 86 Calcium 9.4 Total Bilirubin 0.7 Direct Bilirubin 0.0 Neonat Total Bilirubin Not Reportable Neonat Direct Bilirubin Not Reportable Neonat Indirect Bili Not Reportable AST 23 ALT 14 Alkaline Phosphatase 44 Total Protein 7.6 Albumin 4.8 Lipase 18.5 L Urine Color Urine Appearance Urine pH Ur Specific Industry Urine Protein Urine Glucose (UA) Urine Ketones Urine Blood Urine Nitrite Urine Bilirubin Urine Urobilinogen Ur Leukocyte Esterase Urine WBC (Auto) Urine RBC (Auto) Squamous Epi Cells Auto Urine Mucus (Auto) Urine Ascorbic Acid Urine HCG, Qual NEGATIVE 03/26/20 14:03 WBC RBC Hgb Hct MCV MCH MCHC RDW Plt Count Lymph % (Auto) [place] % (Auto) Eos % (Auto) Baso % (Auto) Absolute Neuts (auto) Absolute Lymphs (auto) Absolute Monos (auto) Absolute Eos (auto) Absolute Basos (auto) Seg Neutrophils % Sodium Potassium Chloride Carbon Dioxide Anion Gap BUN Creatinine Est GFR ( Amer) Est GFR (MDRD) Non-Af Glucose Calcium Total Bilirubin Direct Bilirubin Neonat Total Bilirubin Neonat Direct Bilirubin Neonat Indirect Bili AST ALT Alkaline Phosphatase Total Protein Albumin Lipase Urine Color STRAW Urine Appearance CLEAR Urine pH 6.0 Ur Specific Industry 1.005 Urine Protein NEGATIVE Urine Glucose (UA) NEGATIVE Urine Ketones 20 H Urine Blood NEGATIVE Urine Nitrite NEGATIVE Urine Bilirubin NEGATIVE Urine Urobilinogen NEGATIVE Ur Leukocyte Esterase NEGATIVE Urine WBC (Auto) 1 Urine RBC (Auto) 1 Squamous Epi Cells Auto 4 Urine Mucus (Auto) RARE Urine Ascorbic Acid NEGATIVE Urine HCG, Qual Abdomen/Pelvis CT 03/26/20 00:00 IMPRESSION: 1. Hepatomegaly. 2. Small amount of free fluid in the cul de sac most likely physiologic. No other significant findings. - Vital Signs Vital signs: Temp Pulse Resp BP Pulse Ox 98.5 F 68 18 107/63 100 03/26/20 12:18 03/26/20 20:05 03/26/20 20:05 03/26/20 20:05 03/26/20 20:05 - Laboratory Result Diagrams: 03/26/20 13:04 03/26/20 13:04 Laboratory results interpreted by me: 03/26/20 03/26/20 13:04 14:03 Lipase 18.5 L Urine Ketones 20 H Discharge - Discharge Clinical Impression: Abdominal pain Qualifiers: Abdominal location: right lower quadrant Qualified Code(s): R10.31 - Right lower quadrant pain Condition: Stable Disposition: HOME, SELF-CARE Additional Instructions: Abdominal Pain There are many causes of abdominal pain. Pain can mean a serious problem requiring surgery (such as appendicitis). It can also be an innocent problem that goes away on its own (such as a viral infection). Often, time must pass to determine the cause of pain. The physician does not feel that hospitalization is necessary, at present. Things may change within the next 24 hours. Call the doctor or come back for re- examination if any problems occur, such as: (1) Pain that becomes more severe, steady, or becomes concentrated in one specific area. Also, pain that is more severe with movement or coughing. (2) Vomiting that persists or becomes more frequent. (3) Blood in the vomitus, urine, or bowel movements. Blood in the stool may have a tarry or black appearance. (4) Shaking chills or fever greater than 100 degrees F. (5) The abdomen becomes more distended or swollen. (6) Bowel movements cease. (7) Failure to improve as expected. Observation for Appendicitis At this time, the abdominal pain does not seem to be appendicitis. Our next "test" will be passage of time. If you have early appendicitis, signs will appear to help us make the diagnosis. Most of the time, the pain goes away. In these cases, the pain is usually due to a virus in the lymph glands near the appendix, or due to an ovarian cyst or ovulation. Unless the pain is gone, you should come back for a recheck. This is usually done in 8 to 12 hours. Be sure you understand your follow-up instruct ions. Come back immediately if: (1) the pain becomes much more severe and sharply increases with movement or coughing, (2) vomiting becomes frequent, (3) there is blood in the vomit, urine, or bowel movements, (4) there are shaking chills or fever, or (5) the abdomen becomes more distended or swollen. Forms: Return to Work
--- NOTE | 2020-03-26 17:58 | RADIOLOGY REPORT (SQ) ---
EXAM DESCRIPTION: U/S NON OB PEL W/DOPPLER IMAGES COMPLETED DATE/TIME: 03/26/2020 5:38 pm REASON FOR STUDY: RLQ pain COMPARISON: None. TECHNIQUE: Dynamic and static grayscale images acquired of the pelvis via transabdominal approach an d recorded on PACS. Additional selected color Doppler and spectral images recorded. LIMITATIONS: None. FINDINGS: UTERUS: Contour normal. No mass. ENDOMETRIAL STRIPE: No focal or generalized thickening. No masses. CERVIX: The cervix measures 2.8 cm in length. No nabothian cysts. RIGHT OVARY AND DOPPLER: Normal size. No worrisome masses. Normal arterial vascular flow without evid ence for torsion. LEFT OVARY AND DOPPLER: Normal size. No worrisome masses. Normal arterial vascular flow without evide nce for torsion. FREE FLUID: Mild volume free fluid in the posterior cul-de-sac may be on a physiologic basis. OTHER: No other significant finding. MEASUREMENTS: UTERUS: 8.6 x 5.4 x 4.0 cm ENDOMETRIAL STRIPE: 6.2 mm RIGHT OVARY: 4.0 x 1.5 x 1.4 cm LEFT OVARY: 3.1 x 1.7 x 2.4 cm IMPRESSION: 1. Mild free fluid in the posterior cul-de-sac may be on a physiologic basis. 2. Examination is otherwise unremarkable sonographically. TECHNICAL DOCUMENTATION: JOB ID: [id number] [employer]- All Rights Reserved Rev-01/29 Reading location - IP/workstation name: [email or web address]
[2020-03-26] MEDS ORDERED: KETOROLAC TROMETHAMINE INJ/PF 30 MG/1 ML SDV IV ONE (19:08)
[2020-03-26] MEDS ORDERED: HYDROCODONE/ACETAMINOPHEN 5-325 MG (6 TAB/ER DISP) PO PRN (19:10)
[2020-03-26 20:12] VITALS: BP 107/63
== END 2020-03-26 20:12 | disposition home or self-care (01) ==
LOC: ER 12:08
DX: R10.31 Right lower quadrant pain (principal); R10.813 Right lower quadrant abdominal tenderness; R11.0 Nausea; R30.0 Dysuria; R16.0 Hepatomegaly, not elsewhere classified; F12.10 Cannabis abuse, uncomplicated; Z87.442 Personal history of urinary calculi; Z87.891 Personal history of nicotine dependence
CPT/HCPCS: 99284; 96361; 96374; 96375; 36415; 83690; 85025; 81025; 80053; 81001; 76856; 93976; 74177; J3010; J1885; J2405; J7030